=== PATIENT | male | born 1965 ===

== ENCOUNTER → 2017-10-01 | Emergency (ER) | payer OTHER ==
[~2017-10-01] MED LIST: ATIVAN0.5 M1 PO; LISINOPRIL10 MG PO; WELLBUTRIN SR100 MG PO; ZANTAC300 MG PO; ZOLOFT100 MG PO
== END | disposition left against medical advice (07) ==
LOC: ER 09:54
DX: Z53.20 Procedure and treatment not carried out because of patient's decision for unspecified reasons (principal)

== ENCOUNTER → 2017-10-01 | Emergency (ER) | payer OTHER ==
[~2017-10-01] VITALS: Ht 170.2 cm; Wt 72.6 kg
== END | disposition home or self-care (01) ==
LOC: ER 09:47
DX: J20.9 Acute bronchitis, unspecified (principal); M54.5 Low back pain

== ENCOUNTER → 2022-03-15 | Emergency (ER) | payer OTHER ==
[~2022-03-15] VITALS: Ht 170.2 cm; Wt 78.0 kg
== END | disposition home or self-care (01) ==
LOC: ER 16:26
DX: R00.0 Tachycardia, unspecified (principal); I10 Essential (primary) hypertension; Z20.822 Contact with and (suspected) exposure to COVID-19

== ENCOUNTER 2022-03-23 08:18 | Outpatient (CLI) | payer OTHER | END 2022-03-23 08:31 | disposition home or self-care (01) | LOC: SONOGRAMA 08:18 | PROVIDERS: ATTEND Internal Medicine Gastroenterology | DX: K52.9 Noninfective gastroenteritis and colitis, unspecified (principal) ==

== ENCOUNTER 2022-10-05 13:54 | Emergency (ER) | payer OTHER ==
[~2022-10-05] VITALS: Ht 167.6 cm; Wt 79.4 kg
[2022-10-05] MEDS ORDERED: METFORMIN HCL500 M4 PO (14:50)
[2022-10-05] MEDS ORDERED: LORAZEPAM1 MG PO (14:50)
[2022-10-05] MEDS ORDERED: ARIPIPRAZOLE2 MG PO (14:51)
== END 2022-10-05 21:13 | disposition home or self-care (01) ==
LOC: ER 13:54
DX: J06.9 Acute upper respiratory infection, unspecified (principal); E11.9 Type 2 diabetes mellitus without complications; Z79.84 Long term (current) use of oral hypoglycemic drugs; Z20.822 Contact with and (suspected) exposure to COVID-19

== ENCOUNTER 2024-07-03 09:56 | Outpatient (CLI) | payer OTHER ==
[~2024-07-03 09:56] MED LIST changes: +ARIPIPRAZOLE2 MG PO; +LORAZEPAM1 MG PO; +METFORMIN HCL500 M4 PO
== END 2024-07-03 10:10 | disposition home or self-care (01) ==
LOC: SONOGRAMA 09:56
PROVIDERS: ATTEND Internal Medicine Pulmonary Disease
DX: J43.2 Centrilobular emphysema (principal); Z87.891 Personal history of nicotine dependence; Z86.16 Personal history of COVID-19; N64.4 Mastodynia; F10.20 Alcohol dependence, uncomplicated; M54.59 Other low back pain